=== PATIENT | male | born 1990 | race Caucasian/White ===

== ENCOUNTER 2019-05-10 00:29 | Emergency (ER) | payer SELFPAY ==
[~2019-05-10] VITALS: Ht 182.9 cm; Wt 132.6 kg
[2019-05-10] MEDS ORDERED: OMEP-110 PO (00:51)
--- NOTE | 2019-05-10 00:53 | NUR ---
THIS IS A 28 YO MALE COMING IN FOR WHAT STARTED RLQ ABD PAIN STARTING LAST NIGHT, NOW DIFFUSING ACCROSS ABDOMEN AND RADIATING INTO RIGHT LOWER BACK, RATED 8/10 AT THIS TIME, + NAUSEA AND DIARRHEA, NO VOMITING. 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 LAST BOWEL MOVEMENT WAS TODAY. PATIENT ON SPO2 AND BP MONITORING, VSS, NAD, CALL LIGHT IN REACH, NEEDS ADDRESSED.
[2019-05-10 00:56] LABS: BASOPHILS % (AUTO) 1 % (0-1); EOSINOPHILS # (AUTO) 0.28 x10^3/uL (0-0.4); EOSINOPHILS % (AUTO) 3 % (1-7); LYMPHOCYTES # (AUTO) 3.27 x10^3/uL (1-3.4); LYMPHOCYTES % (AUTO) 31 % (22-44); MD NO; MEAN CORPUSCULAR HEMOGLOBIN 30.4 pg (27.5-34.5); MEAN CORPUSCULAR HGB CONC 33.9 g/dL (33.2-36.2); MEAN CORPUSCULAR VOLUME 89.7 fL (81-97); MEAN PLATELET VOLUME 6.7 fL (7.4-10.4); MONOCYTES # (AUTO) 0.81 x10^3/uL (0.2-0.8); MONOCYTES % (AUTO) 8 % (2-9); NEUTROPHILS % (AUTO) 57 % (42-75); PLATELET COUNT 375 x10^3/uL (130-400); RED BLOOD COUNT 5.15 x10^6/uL (4.38-5.82); RED CELL DISTRIBUTION WIDTH 13.5 % (9.4-14.8)
[2019-05-10] MEDS ORDERED: OMNIPAQUE 350 MG/ML, 100ML BOTTLE ONE (01:00)
[2019-05-10 01:07] LABS: ALANINE AMINOTRANSFERASE 44 U/L (12-78); ALBUMIN 3.7 g/dL (3.4-5.0); ANION GAP 9 mmol/L (5-15); CALCIUM 8.9 mg/dL (8.5-10.1); CHLORIDE 104 mmol/L (98-107); CREATININE 1.24 mg/dL (0.7-1.3)
--- NOTE | 2019-05-10 01:07 | NUR ---
UA OBTAINED AND SENT TO LAB
[2019-05-10 01:09] LABS: ALKALINE PHOSPHATASE 68 U/L (45-117); BILIRUBIN,TOTAL 0.3 mg/dL (0.2-1.0); TOTAL PROTEIN 8.1 g/dL (6.4-8.2)
[2019-05-10 01:13] LABS: MICROSCOPIC AUTO
[2019-05-10 01:16] LABS: CULTURE INDICATED? NO
[2019-05-10] MEDS ORDERED: ONDANSETRON 2MG/ML, 2ML ONE (01:23)
[2019-05-10] MEDS ORDERED: MORPHINE SULFATE 4 MG/ML, 1ML ONE (01:23)
[2019-05-10] MEDS ORDERED: MORPHINE SULFATE 4 MG/ML, 1ML IVPush ONE (01:30)
[2019-05-10] MEDS ORDERED: ONDANSETRON 2MG/ML, 2ML IVPush ONE (01:30)
--- NOTE | 2019-05-10 01:30 | NUR ---
PATIENT TO CT
--- NOTE | 2019-05-10 01:30 | NUR ---
PIV PLACED. PATIENT MEDICATED PER EMAR, TOLERATED WELL.
--- NOTE | 2019-05-10 01:47 | NUR ---
PATIENT BACK FROM CT
--- NOTE | 2019-05-10 02:04 | NUR ---
REPORT RECEIVED, CARE ASSUMED. PT RESTING QUIETLY, STATES ABD PAIN NOW 3/10 WITH MILD NAUSEA. DENIES NEED FOR ADDITIONAL MEDICATIONS. PT AWARE AWAITING CT.
--- NOTE | 2019-05-10 02:34 | NUR ---
RESULTS IN. PT CLEARED FOR DISCHARGE. Patient given discharge instructions and they have confirmed that they understand the instructions. Patient ambulatory with steady gait.
[2019-05-10 02:35] VITALS: BP 121/76
== END 2019-05-10 02:37 | disposition home or self-care (01) ==
LOC: ED 01:14
DX: R10.31 Right lower quadrant pain (principal); I10 Essential (primary) hypertension; J45.909 Unspecified asthma, uncomplicated; F17.200 Nicotine dependence, unspecified, uncomplicated
CPT/HCPCS: 36415; 74177; 80053; 81001; 83690; 85025; 93005; 96374; 96375; 99284; J2270; J2405; Q9967

== ENCOUNTER 2019-05-14 15:06 | Emergency (ER) | payer OTHER ==
[~2019-05-14] VITALS: Ht 193 cm; Wt 133.4 kg
[~2019-05-14 15:06] MED LIST: OMEP-110 PO
[2019-05-14 15:21] VITALS: BP 142/88
[2019-05-14] MEDS ORDERED: FLUT9.9S NAS (16:49)
--- NOTE | 2019-05-14 17:02 | NUR ---
TO RADIOLOGY PER NADEME
== END 2019-05-14 17:49 | disposition home or self-care (01) ==
LOC: ED 17:43
DX: S76.011A Strain of muscle, fascia and tendon of right hip, initial encounter (principal); I10 Essential (primary) hypertension; J45.909 Unspecified asthma, uncomplicated; K50.90 Crohn's disease, unspecified, without complications; X58.XXXA Exposure to other specified factors, initial encounter; Y93.89 Activity, other specified; Y92.89 Other specified places as the place of occurrence of the external cause; Y99.8 Other external cause status
CPT/HCPCS: 99283

== ENCOUNTER 2019-06-27 14:26 | Emergency (ER) | payer MEDICAID ==
[~2019-06-27] VITALS: Ht 182.9 cm; Wt 130.0 kg
[~2019-06-27 14:26] MED LIST changes: +FLUT9.9S NAS
[2019-06-27 14:51] VITALS: BP 136/78
--- NOTE | 2019-06-27 15:28 | NUR ---
PT AMBULATORY WITH STEADY GAIT TO ROOM AT THIS TIME.
[2019-06-27] MEDS ORDERED: FLUORESCEIN OPHTHALMIC 1 MG STRIP ONE (15:41)
[2019-06-27] MEDS ORDERED: PROPARACAINE OPHTH 0.5%, 15ML ONE (15:41)
[2019-06-27] MEDS ORDERED: FLUORESCEIN OPHTHALMIC 1 MG STRIP RIGHTEYE ONE (16:00)
[2019-06-27] MEDS ORDERED: PROPARACAINE OPHTH 0.5%, 15ML RIGHTEYE ONE (16:00)
== END 2019-06-27 16:04 | disposition home or self-care (01) ==
LOC: ED 15:45
DX: H10.021 Other mucopurulent conjunctivitis, right eye (principal); H57.11 Ocular pain, right eye; F17.210 Nicotine dependence, cigarettes, uncomplicated; I10 Essential (primary) hypertension
CPT/HCPCS: 99283; 99406

== ENCOUNTER 2019-07-17 21:37 | Emergency (ER) | payer MEDICAID ==
[~2019-07-17] VITALS: Ht 182.9 cm; Wt 130.7 kg
[2019-07-17 21:40] VITALS: BP 147/84
== END 2019-07-17 22:52 | disposition home or self-care (01) ==
LOC: ED 21:52
DX: B34.9 Viral infection, unspecified (principal); I10 Essential (primary) hypertension; F17.210 Nicotine dependence, cigarettes, uncomplicated
CPT/HCPCS: 71045; 93005; 99406

== ENCOUNTER 2019-07-24 19:21 | Emergency (ER) | payer MEDICAID ==
[~2019-07-24] VITALS: Ht 182.9 cm; Wt 130.0 kg
--- NOTE | 2019-07-24 19:47 | NUR ---
Pt presents to room stating the symptoms he has been seen for before continue to persist. Pt states that he has now developed pressure across his chest in the last 3 days with a coughg and lightheadedness today.
[2019-07-24] MEDS ORDERED: ASPIRIN 81 MG TABLET CHEW PO ONE (19:59)
[2019-07-24] MEDS ORDERED: OXYcodone/APAP 5/325MG TABLET PO ONE (20:00)
[2019-07-24] MEDS ORDERED: OXYcodone/APAP 5/325MG TABLET ONE (20:04)
[2019-07-24] MEDS ORDERED: ASPIRIN 81 MG TABLET CHEW ONE (20:05)
[2019-07-24 20:43] LABS: BASOPHILS # (AUTO) 0.06 x10^3/uL (0-0.1); BASOPHILS % (AUTO) 1 % (0-1); EOSINOPHILS # (AUTO) 0.26 x10^3/uL (0-0.4); EOSINOPHILS % (AUTO) 3 % (1-7); LYMPHOCYTES # (AUTO) 3.76 x10^3/uL (1-3.4); LYMPHOCYTES % (AUTO) 36 % (22-44); MD NO; MEAN CORPUSCULAR HEMOGLOBIN 30.6 pg (27.5-34.5); MONOCYTES # (AUTO) 0.69 x10^3/uL (0.2-0.8); MONOCYTES % (AUTO) 7 % (2-9); NEUTROPHILS # (AUTO) 5.76 x10^3/uL (1.8-6.8); NEUTROPHILS % (AUTO) 55 % (42-75); PLATELET COUNT 358 x10^3/uL (130-400); RED BLOOD COUNT 5.08 x10^6/uL (4.38-5.82); RED CELL DISTRIBUTION WIDTH 13.6 % (9.4-14.8)
[2019-07-24 20:52] LABS: ALBUMIN 3.6 g/dL (3.4-5.0); ANION GAP 7 mmol/L (5-15); CALCIUM 8.6 mg/dL (8.5-10.1); CHLORIDE 107 mmol/L (98-107); CREATININE 1.06 mg/dL (0.7-1.3)
[2019-07-24 21:59] VITALS: BP 123/66
== END 2019-07-24 22:01 | disposition home or self-care (01) ==
LOC: ED 19:43
DX: R06.00 Dyspnea, unspecified (principal); R07.89 Other chest pain; J02.9 Acute pharyngitis, unspecified; I10 Essential (primary) hypertension; J45.909 Unspecified asthma, uncomplicated; F17.200 Nicotine dependence, unspecified, uncomplicated; K50.90 Crohn's disease, unspecified, without complications
CPT/HCPCS: 36415; 71045; 80048; 82040; 83615; 85025; 93005; 99285

== ENCOUNTER 2019-08-18 23:47 | Emergency (ER) | payer MEDICAID ==
[~2019-08-18] VITALS: Ht 182.9 cm; Wt 132.0 kg
[2019-08-19] MEDS ORDERED: LORA10CA PO (00:07)
[2019-08-19 00:10] LABS: BASOPHILS # (AUTO) 0.12 x10^3/uL (0-0.1); BASOPHILS % (AUTO) 1 % (0-1); EOSINOPHILS # (AUTO) 0.22 x10^3/uL (0-0.4); EOSINOPHILS % (AUTO) 2 % (1-7); LYMPHOCYTES # (AUTO) 3.96 x10^3/uL (1-3.4); LYMPHOCYTES % (AUTO) 37 % (22-44); MD NO; MEAN CORPUSCULAR HEMOGLOBIN 30.6 pg (27.5-34.5); MEAN CORPUSCULAR HGB CONC 34.1 g/dL (33.2-36.2); MEAN CORPUSCULAR VOLUME 89.9 fL (81-97); MEAN PLATELET VOLUME 6.6 fL (7.4-10.4); MONOCYTES % (AUTO) 7 % (2-9); NEUTROPHILS # (AUTO) 5.64 x10^3/uL (1.8-6.8); NEUTROPHILS % (AUTO) 53 % (42-75); PLATELET COUNT 375 x10^3/uL (130-400); RED BLOOD COUNT 5.16 x10^6/uL (4.38-5.82); RED CELL DISTRIBUTION WIDTH 13.6 % (9.4-14.8)
--- NOTE | 2019-08-19 00:11 | NUR ---
pt to ed for ruq abd pain, nausea and "yellow/orange oily stool." pt denies v/f/c/d and resp s/s. pt connected to monitors. vss. josiane Potter to bs for assessment. orders received. piv established and labs drawn. 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 pt medicated for pain and nausea. awaiting us.
[2019-08-19 00:23] LABS: ALANINE AMINOTRANSFERASE 57 U/L (12-78); ALBUMIN 3.9 g/dL (3.4-5.0); ANION GAP 9 mmol/L (5-15); CALCIUM 8.9 mg/dL (8.5-10.1); CHLORIDE 104 mmol/L (98-107); CREATININE 1.05 mg/dL (0.7-1.3)
[2019-08-19 00:25] LABS: ALKALINE PHOSPHATASE 68 U/L (45-117); BILIRUBIN,TOTAL 0.3 mg/dL (0.2-1.0); TOTAL PROTEIN 7.8 g/dL (6.4-8.2)
[2019-08-19] MEDS ORDERED: ONDANSETRON 2MG/ML, 2ML ONE (00:29)
[2019-08-19] MEDS ORDERED: MORPHINE SULFATE 4 MG/ML, 1ML ONE (00:29)
[2019-08-19] MEDS ORDERED: ONDANSETRON 2MG/ML, 2ML IVPush ONE (00:30)
[2019-08-19] MEDS ORDERED: MORPHINE SULFATE 4 MG/ML, 1ML IVPush ONE (00:30)
[2019-08-19 00:33] VITALS: BP 128/69
--- NOTE | 2019-08-19 01:02 | NUR ---
BREAK RN: ALL RESULTS BACK. CHART UP FOR RECHECK BY ERP.
== END 2019-08-19 02:34 | disposition home or self-care (01) ==
LOC: ED 08-19 00:31
DX: R10.11 Right upper quadrant pain (principal); R11.0 Nausea; K76.0 Fatty (change of) liver, not elsewhere classified; F17.210 Nicotine dependence, cigarettes, uncomplicated
CPT/HCPCS: 36415; 76700; 80053; 83690; 85025; 96374; 96375; 99284; 99406; J2270; J2405